=== PATIENT | male | born 1955 | race Caucasian/White ===

== ENCOUNTER 2019-11-23 12:39 | Outpatient (CLI) | payer OTHER, SELFPAY ==
--- NOTE | 2019-11-23 | ECHO_ITS ---
Patient Info Name: Garett King Age: 64 years : 1955 Gender: Male Ht: 69 in Wt: 130 lbs BSA: 1.69 m2 HR: 78 bpm BP: 160 / 83 mmHg Heart Rhythm: Sinus Rhythm Technical Quality: Good Exam Date: 11/23/2019 1:25 PM Exam Location: [facility] Patient Status: Outpatient Admit Date: 11/23/2019 Staff Ordering Physician: Rahul, Chicho Rachel MD Typewriter Assembler: Regis De La Cruz, NELDA, RT Attending Provider: Rahul, Chicho Rachel MD Referring Physician: Rahul SALAMANCA; Exam Type: CA echo doppler color flow Study Info Indications - CAD S/P AVR Complete two-dimensional, color flow and Doppler transthoracic echocardiogram is performed. Summary 1. Complete two-dimensional, color flow and Doppler transthoracic echocardiogram is performed. 2. Left ventricular chamber dimension is mildly enlarged. 3. Left ventricular systolic function is normal, estimated at 65-70%. 4. There is mildly increased left ventricular wall thickness. 5. The left ventricular diastolic function is grade I diastolic dysfunction. 6. The basal inferior wall is akinetic. 7. The mid inferior wall, and basal inferoseptal are hypokinetic. 8. All other gan appear normal. 9. Left atrial chamber dimension is mildly enlarged. 10. There is mild to moderate aortic valve regurgitation. 11. There is mild mitral valve regurgitation. 12. The mitral valve has calcified annulus. 13. There is mild tricuspid valve regurgitation. 14. Possible aortic valve bioprosthesis is seen. 15. The aortic root size at the sinus of Valsalva is dilated. Left Ventricle Left ventricular chamber dimension is mildly enlarged. Left ventricular systolic function is normal, estimated at 65-70%. There is mildly increased left ventricular wall thickness. The left ventricular diastolic function is grade I diastolic dysfunction. The basal inferior wall is akinetic. The mid inferior wall, and basal inferoseptal are hypokinetic. All other gan appear normal. Right Ventricle Right ventricular chamber dimension is normal. Right ventricular systolic function is normal. Left Atria Left atrial chamber dimension is mildly enlarged. Right Atria Right atrial chamber dimension is normal. Atrial Septum Intact interatrial septum visualized by color flow imaging. Aortic Valve The aortic valve is not well visualized. There is no aortic valve stenosis. There is mild to moderate aortic valve regurgitation. Possible aortic valve bioprosthesis is seen. Pulmonic Valve The pulmonic valve is normal. There is no pulmonic valve stenosis. There is trace pulmonic regurgitation. Mitral Valve The mitral valve has calcified annulus. There is no mitral valve stenosis. There is mild mitral valve regurgitation. Tricuspid Valve The tricuspid valve leaflets are normal. There is no significant tricuspid valve stenosis. There is mild tricuspid valve regurgitation. Pericardium/Pleural The pericardium appears normal. There is no pericardial effusion. Inferior Vena Cava Normal inferior vena cava with >50% collapse upon inspiration consistent with normal right atrial pressure, 5 mmHg. Aorta The aortic root size at the sinus of Valsalva is dilated. Left Ventricular Outflow Tract Name Value Normal LVOT 2D
== END 2019-11-23 12:40 | disposition home or self-care (01) ==
PROVIDERS: PCP Nurse Practitioner Family; Visit Provider Internal Medicine Cardiovascular Disease
DX: T82.897D Other specified complication of cardiac prosthetic devices, implants and grafts, subsequent encounter (principal); I25.10 Atherosclerotic heart disease of native coronary artery without angina pectoris; I08.3 Combined rheumatic disorders of mitral, aortic and tricuspid valves
CPT/HCPCS: 93306